=== PATIENT | male | born 1970 | race Two or more races ===

== ENCOUNTER 2019-04-04 05:55 | Day surgery (SDC) | payer OTHER ==
[~2019-04-04 05:55] MED LIST: CRESTOR20 MG PO; DIVALPROEX SOD500 M1 PO; ESCITALOPRAM OX20 MG PO; SINGULAIR10 MG PO; [UNRECOGNIZED DRUG - OTHER] PO; [UNRECOGNIZED DRUG - OTHER] PO
[2019-04-04] MEDS ORDERED: PERCOCET 5-3251 EACH PO (08:29)
[2019-04-04] MEDS ORDERED: RECTICARE30 GM TOP (08:30)
== END 2019-04-04 12:25 | disposition home or self-care (01) ==
LOC: CIR.AMB 05:55
DX: K60.3 Anal fistula (principal)

== ENCOUNTER 2020-07-07 07:09 | Day surgery (SDC) | payer OTHER ==
[~2020-07-07 07:09] MED LIST changes: +PERCOCET 5-3251 EACH PO; +RECTICARE30 GM TOP
== END 2020-07-07 11:30 | disposition home or self-care (01) ==
LOC: AMB-ENDOS 07:09
PROVIDERS: ATTEND Surgery
DX: K62.1 Rectal polyp (principal); K63.5 Polyp of colon; K64.8 Other hemorrhoids; Z20.828 Contact with and (suspected) exposure to other viral communicable diseases